=== PATIENT | female | born 1985 | race Caucasian/White ===

== ENCOUNTER 2021-04-23 14:25 | Outpatient (REF) | payer BC, SELFPAY ==
[2021-04-23 16:34] LABS: MANUAL DIFF FLAG NO
[2021-04-23 16:39] LABS: Basophils Percent Auto 0.6 % (0-2); Eosinophils Absolute Auto 0.2 X10*3/uL (0.0-0.4); Eosinophils Percent Auto 2.2 % (0-4); Hematocrit 40.3 % (37.0-47.0); Hemoglobin 13.7 g/dl (12.0-16.0); Imm Gran Abs Auto 0.01 X10*3/uL (0.00-0.03); Imm Gran Pct Auto 0.1 % (0.0-0.4); Lymphocytes Absolute Auto 2.4 X10*3/uL (1.2-4.9); Lymphocytes Percent Auto 34.6 % (20-40); Mean Corpuscular Hemoglobin 30.2 pg (27.0-33.0); Mean Corpuscular Volume 88.8 fL (80.0-98.0); Mean Platelet Volume 11.1 fL (9.4-12.3); Monocytes Absolute Auto 0.4 X10*3/uL (0.1-1.2); Monocytes Percent Auto 5.4 % (2-11); Neutrophils Absolute Auto 3.9 x10*3/uL (2.0-8.3); Neutrophils Percent Auto 57.1 % (45-73); Platelet Count 279 X10*3/uL (160-400); Red Blood Count 4.54 X10*6/uL (4.20-5.50); Red Cell Distribution Width 12.4 % (11.0-16.0); White Blood Count 6.8 X10*3/uL (4.8-10.8)
[2021-04-23 16:49] LABS: Alanine Aminotransferase 13 U/L (0-31); Albumin Level 4.7 g/dL (3.5-5.0); Alkaline Phosphatase 64 U/L (39-117); Anion Gap 14 (12-20); Aspartate Amino Transferase 18 U/L (5-31); Bilirubin Total 0.4 mg/dL (0.0-1.0); Blood Urea Nitrogen 14 mg/dL (9-16); Calcium 10.1 mg/dL (8.4-10.2); Carbon Dioxide 24 mmol/L (22-29); Chloride 103 mmol/L (96-108); Estimated Glomerular Filt Rate > 60; Glucose Random 103 mg/dL (60-115); Potassium 4.1 mmol/L (3.3-5.1); Sodium 137 mmol/L (135-145); Total Protein 7.6 g/dL (6.5-8.0)
[2021-04-23 17:10] LABS: TSH reflex Free T4 0.55 uIU/mL (0.32-4.0)
[2021-04-23 17:14] LABS: Vitamin B12 700 pg/mL (200-900)
[2021-04-24 14:56] LABS: LDL Cholesterol Direct 139 mg/dL (<100)
[2021-04-27 12:41] LABS: Vitamin D 25-OH, D2 <4 ng/mL; Vitamin D 25-OH, D3 22 ng/mL; Vitamin D 25-OH, Total 22 ng/mL (30-100)
== END 2021-04-23 14:26 | disposition home or self-care (01) ==
LOC: HO.HMGCLDS 14:25
PROVIDERS: Visit Provider Internal Medicine
DX: Z00.01 Encounter for general adult medical examination with abnormal findings (principal); F43.29 Adjustment disorder with other symptoms; F41.1 Generalized anxiety disorder; F41.0 Panic disorder [episodic paroxysmal anxiety]; R00.0 Tachycardia, unspecified
CPT/HCPCS: 36415; 80053; 82306; 82607; 83721; 84443; 85025

== ENCOUNTER 2022-08-11 12:46 | Outpatient (REF) | payer BC, SELFPAY ==
[2022-08-11 14:31] LABS: MANUAL DIFF FLAG NO
[2022-08-11 14:42] LABS: Basophils Percent Auto 0.6 % (0-2); Eosinophils Absolute Auto 0.1 X10*3/uL (0.0-0.4); Eosinophils Percent Auto 1.6 % (0-4); Hematocrit 40.7 % (37.0-47.0); Hemoglobin 13.6 g/dl (12.0-16.0); Imm Gran Abs Auto 0.02 X10*3/uL (0.00-0.03); Imm Gran Pct Auto 0.3 % (0.0-0.4); Lymphocytes Absolute Auto 2.2 X10*3/uL (1.2-4.9); Mean Corpuscular HGB Conc 33.4 g/dl (31.0-35.0); Mean Corpuscular Hemoglobin 29.6 pg (27.0-33.0); Mean Corpuscular Volume 88.7 fL (80.0-98.0); Mean Platelet Volume 10.8 fL (9.4-12.3); Monocytes Absolute Auto 0.5 X10*3/uL (0.1-1.2); Monocytes Percent Auto 7.2 % (2-11); Neutrophils Absolute Auto 3.4 x10*3/uL (2.0-8.3); Neutrophils Percent Auto 54.3 % (45-73); Platelet Count 264 X10*3/uL (160-400); Red Blood Count 4.59 X10*6/uL (4.20-5.50); Red Cell Distribution Width 12.5 % (11.0-16.0); White Blood Count 6.2 X10*3/uL (4.8-10.8)
[2022-08-11 15:13] LABS: Alanine Aminotransferase 13 U/L (0-31); Albumin Level 4.5 g/dL (3.5-5.0); Alkaline Phosphatase 52 U/L (39-117); Anion Gap 11 (12-20); Aspartate Amino Transferase 14 U/L (5-31); Bilirubin Total 0.8 mg/dL (0.0-1.0); Blood Urea Nitrogen 11 mg/dL (9-16); Calcium 9.7 mg/dL (8.4-10.2); Carbon Dioxide 27 mmol/L (22-29); Chloride 103 mmol/L (96-108); Cholesterol 216 mg/dL; Estimated Glomerular Filt Rate > 60; Glucose Fasting 95 mg/dL (60-99); HDL Cholesterol 58 mg/dL; LDL Cholesterol Calculated 142 mg/dl; Potassium 4.1 mmol/L (3.3-5.1); Sodium 137 mmol/L (135-145); Total Protein 7.1 g/dL (6.5-8.0); Triglycerides 82 mg/dL
[2022-08-11 15:21] LABS: TSH reflex Free T4 0.99 uIU/mL (0.32-4.0)
[2022-08-18 17:19] LABS: Vitamin D 25-OH, D2 <4 ng/mL; Vitamin D 25-OH, D3 39 ng/mL; Vitamin D 25-OH, Total 39 ng/mL (30-100)
== END 2022-08-11 12:47 | disposition home or self-care (01) ==
LOC: HO.HMGCLDS 12:46
PROVIDERS: PCP Internal Medicine; Visit Provider Internal Medicine
DX: Z00.01 Encounter for general adult medical examination with abnormal findings (principal); E55.9 Vitamin D deficiency, unspecified; F41.0 Panic disorder [episodic paroxysmal anxiety]; F41.1 Generalized anxiety disorder; R45.4 Irritability and anger; Z13.220 Encounter for screening for lipoid disorders
CPT/HCPCS: 36415; 80053; 80061; 82306; 84443; 85025

== ENCOUNTER 2023-04-28 12:46 | Outpatient (AMB) | payer BC, SELFPAY ==
--- NOTE | 2023-04-28 12:47 | A.OFFPC_ITS ---
Vital Signs 04/28/23 12:49 Height 5 ft 2 in Weight 144 lb BMI 26.3 BP 102/68 Blood Pressure Location Lt brachial Position Sitting Pulse 70 Pulse Source Pulse Oximeter Pulse Oximetry (%) 100 Oxygen Delivery Method Room Air Intake Visit Reasons: Annual PE Allergies Environmental Allergy (Unknown, Uncoded 04/28/23 12:47) Runny Nose Medication List - Last Reconciled 04/28/23 by Maicol Lee MD buspirone 5 mg PO TID PRN 30 days cholecalciferol (vitamin D3) 25 mcg PO DAILY 90 days Tobacco use date assessed: 04/28/23 Dental Screening Dental Screen Date: 04/28/23 HPI Annual PE HPI Details Patient is a 37-year-old female came in today for physical examination She has stopped taking Wellbutrin, patient has changed her lifestyle, started exercising and eating healthy and she does feel depressed anymore She takes buspirone 5 mg only as needed Patient have OBGYN at [facility] she has not seen them in 3 years, she said that she will call in book appointment Labs that were done last time reviewed again I do not see the need to repeat labs at this time. [facility] Medical History depression Family History Father Diabetes Hypertension Mother Hypertension Hypothyroid Paternal Grandfather Diabetes Maternal Grandmother Cancer Sister Gallstones Social History Housing: Apartment Alcohol intake: current Alcohol intake frequency: a few times a month Patient Tobacco Use Status: Never used Tobacco e-Cigarette/Vaping Use: Never Used service: No Current occupational status: employed Cognitive needs: No Hearing needs: No Vision needs: Yes (contacts) Questionnaire PHQ-9 Over the last 2 weeks, how often have you been bothered by any of the following problems? 1. Little interest or pleasure in doing things: not at all 2. Feeling down, depressed, or hopeless: not at all 3. Trouble falling or staying asleep, or sleeping too much: not at all 4. Feeling tired or having little energy: not at all 5. Poor appetite or overeating: not at all 6. Feeling bad about yourself - or that you are a failure or have let yourself or your family down: not at all 7. Trouble concentrating on things, such as reading the newspaper or watching television: not at all 8. Moving or speaking so slowly that other people could have noticed. Or the opposite - being so fidgety or restless that you have been moving around a lot more than usual: not at all 9. Thoughts that you would be better off or of hurting yourself in some way: not at all Total score: 0 Depression Screening Interpretation: Negative Depression Screening Done: Yes 45985 - PHQ-9 Billing: Yes Source: Developed by Drs. Jase Julien, Leah Anaya, Eulalio Mcneal and colleagues, with an educational jose from [employer]. Thrive Questionnaire Date Thrive assessed: 04/28/23 I am a: Patient What is your living situation today?: I have a steady place to live Within the past 12 months, did the food you bought not last and you didn't have the money to get more?: Never true Within the past 12 months, did you worry whether your food would run out before you got money to buy more?: Never true Do you have trouble paying for medicines?: No Do you have trouble getting transportation to medical appointments?: No Do you have trouble paying your heating and electricity bill?: No Do you have trouble taking care of your child, family member or friend?: No Do you have trouble with day-to-day activities such as bathing, preparing meals, shopping, managing finances, etc.?: No Are you currently unemployed and looking for a job?: No Are you interested in more education?: No Please select the resources that you would like help with: None Currently or been in a relationship where the following occur: no concerns reported THRIVE Score: 0 AUDIT C Alcohol Use Questionnaire (AUDIT-C) 1. How often do you have a drink containing alcohol?: Monthly or less 2. How many drinks containing alcohol do you have on a typical day when you are drinking?: 1 or 2 3. How often do you have six or more drinks on one occasion?: Never Total Score: 1 Score Reviewed/Action Taken: No CHRIS-7 AMB Questionnaire CHRIS-7 Date CHRIS - 7 assessed: 04/28/23 Feeling nervous, anxious, or on edge: 0 = Not at all Not being able to stop or control worryin = Not at all Worrying too much about different things: 0 = Not at all Trouble relaxin = Not at all Being so restless that it is hard to sit still: 0 = Not at all Becoming easily annoyed or irritable: 0 = Not at all Feeling afraid as if something awful might happen: 0 = Not at all Total CHRIS-7 score (0-4 normal; 5-9 mild; 10-14 moderate; 15-21 severe): 0 Source: Developed by Drs. Jase Julien, Leah Anaya, Eulalio Mcneal and colleagues, with an educational jose from [employer]. CHRIS-7 Assessment Billing CHRIS-7 Assessment Tool: CHRIS-7 Assessment 75627 Review of Systems Const Denies chills, Denies fever(s) and Denies headache(s) Eyes Denies blurry vision ENT Denies headache(s), Denies nasal discharge, Denies nasal obstruction, Denies odynophagia and Denies sinus pain Card Denies chest pain at rest and Denies chest pain with activity Resp Denies cough and Denies hemoptysis GI Denies diarrhea, Denies odynophagia, Denies vomiting and Denies hematemesis Reports as per HPI Musc Denies abnormal gait Skin/Breast Reports as per HPI Neuro Denies Neuro-related abnormal movements, Denies Abnormal speech present, Denies abnormal gait, Denies headache(s) and Denies Sensory deficit (Neuro) Psych Denies mood swings and Denies paranoia Endo Reports as per HPI Scooby/Lymph Reports as per HPI Aller/Immun Reports as per HPI Physical exam (Primary Care) Vital Signs: Last Vital Signs Pulse 70 04/28/23 12:49 BP 102/68 04/28/23 12:49 Pulse Ox 100 04/28/23 12:49 Oxygen Delivery Method Room Air 04/28/23 12:49 BMI result Body Mass Index 26.3 Tobacco/Smoking Status: Tobacco use Status Tobacco use date assessed 04/28/23 04/28/23 12:53 Patient Tobacco Use Status Never used Tobacco 04/28/23 12:53 e-Cigarette/Vaping Use Never Used 04/28/23 12:53 PHQ-9: PHQ-9 Score PHQ-9: Total score 0 04/28/23 12:53 Depression Screening Interpretation: Negative Thrive Assessment: Date of Thrive Assessment Date Thrive assessed 04/28/23 04/28/23 12:53 Currently or been in a relationship where the following occur: no concerns reported Const General: cooperative, comfortable and no acute distress Orientation/consciousness: patient oriented x3 HENMT Head: Yes normocephalic and Yes atraumatic Eyes General: appearance normal, both eyes and all related structures Pupils: Equal, round and reactive pupils present EOM: EOMs intact bilaterally Neck Neck: Yes supple and No lymphadenopathy Thyroid: Thyroid normal Lymphatic: no lymphadenopathy noted Chest Breast/axilla palpation: normal palpation of the breasts Resp Effort & Inspection: normal respiratory effort and able to speak in complete sentences Auscultation: clear to auscultation bilaterally Cardio Heart sounds: S1 normal heart sound present and S2 normal heart sound present GI Palpation (GI): Soft to palpation and nontender Auscultation: normal bowel sounds General: Yes no CVA tenderness Back/Spine/Pelvis Back: no CVA tenderness Skin General skin exam: elasticity normal and turgor normal Neuro General: patient oriented x3 and gait normal Cranial nerves: Yes Equal, round and reactive pupils present Speech: No Abnormal speech present Sensory Exam: No Sensory deficit (Neuro) Coordination: tandem gait normal and Romberg test negative Extrem General: Yes normal exam except as noted and No edema Assessment and Plan Assessment & Plan (1) Encounter for general adult medical examination with abnormal findings: Code(s): Z00.01 - Encounter for general adult medical examination with abnormal findings (2) Vitamin D deficiency: Code(s): E55.9 - Vitamin D deficiency, unspecified (3) Generalized anxiety disorder with panic attacks: Code(s): F41.1 - Generalized anxiety disorder; F41.0 - Panic disorder [episodic paroxysmal anxiety] Plan Patient is a 37-year-old female came in today for physical examination She has stopped taking Wellbutrin, patient has changed her lifestyle, started exercising and eating healthy and she does feel depressed anymore She takes buspirone 5 mg only as needed Patient have OBGYN at [facility] she has not seen them in 3 years, she said that she will call in book appointment Labs that were done last time reviewed again I do not see the need to repeat labs at this time. Coding Level of Care Code Est Pt Prev Care 18-39y(94931) Diagnoses Encounter for general adult medical examination with abnormal findings Z00.01 Vitamin D deficiency E55.9 Generalized anxiety disorder with panic attacks F41.1; F41.0 Additional Codes CHRIS-7 Assessment Billing - CHRIS-7 Assessment Tool: CHRIS-7 Assessment [id number] ([id number])
[2023-04-28 12:49] VITALS: BP 102/68; PULSE 70; O2SAT 100; BMI 26.3
== END 2023-04-28 14:23 | disposition home or self-care (01) ==
PROVIDERS: PCP Internal Medicine; Visit Provider Internal Medicine
DX: Z00.00 Encounter for general adult medical examination without abnormal findings (principal); E55.9 Vitamin D deficiency, unspecified; F41.1 Generalized anxiety disorder; F41.0 Panic disorder [episodic paroxysmal anxiety]
CPT/HCPCS: 99395

== ENCOUNTER 2024-05-10 09:00 | Outpatient (AMB) | payer OTHER, SELFPAY ==
[2024-05-10 09:02] VITALS: BP 116/82; PULSE 88; O2SAT 96; BMI 24.5
--- NOTE | 2024-05-10 09:02 | A.OFFPC_ITS ---
Vital Signs 05/10/24 09:02 Height 5 ft 2 in Weight 134 lb BMI 24.5 BP 116/82 Blood Pressure Location Rt brachial Position Sitting Pulse 88 Pulse Source Pulse Oximeter Pulse Oximetry (%) 96 Oxygen Delivery Method Room Air Intake Visit Reasons: Annual PE Allergies Environmental Allergy (Unknown, Uncoded 04/28/23 12:47) Runny Nose Medication List - Last Reconciled 05/10/24 by Maicol Lee MD buspirone 5 mg PO TID PRN 30 days cholecalciferol (vitamin D3) 25 mcg PO DAILY 90 days Tobacco use date assessed: 05/10/24 Dental Screening Dental Screen Date: 05/10/24 Did you have a dental visit in the last 12 months?: Yes Did you have a dental problem in the last 6 months where you did not have access to dental care?: No Was dental information given to patient?: Patient has dentist HPI Annual PE HPI Details History of Present Illness - The patient is a 38-year-old female pr esenting for a wellness visit. Offer no new complaints Taking buspirone 5 mg only as needed Health Maintenance - OBGYN appointment was performed recent ly and up-to-date with the breast examination. - Labs ordered for routine wellness chec k. - Reviewed older discussions around fast ing labs for every other year without indication of acute concerns. 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 - Background in occupational therapy, fo cusing on upper body rehabilitation tasks involving independence in activities of daily living. Patient Instructions - Proceed with the labs as per the order . - Continue current medication as needed. - Maintain regular wellness checks, mildred moreno. Review of Systems - General: No fever no chills - Neurological: No headaches no dizzin ess - Ear nose throat: No sore throat no hearing difficulty no ear pain - Cardiovascular: No syncope, no chest pain, no palpitations - Gastrointestinal: No nausea vomiting or diarrhea - Endocrine: No polyuria polydipsia no heat intolerance - Genitourinary: No dysuria - Skin: No new complaints Physical Exam General: Cooperative, healthy appearing, comfortable, no acute distress Orientation: Patient oriented x3 Limitations: None Head: Normal to inspection Ears: Within normal limit visually Nose: Normal external nose present Face and sinus: Normal facial exam Eyes: Appearance normal, extraocular movement intact pupils reactive Neck: Normal visual inspection and supple Respiratory: Normal respiratory effort and able to speak in complete sentences. Clear to auscultation, no stridor Breast exam through OBGYN Cardiovascular: S1 and S2 GI: Normal to inspection. Soft to palpation and nontender Skin: Turgor normal, no acute findings Neuro: Patient oriented x3, motor sensory intact, balance intact, tandem pass Extremities: Normal to inspection, no problem with the joints, knees crack sometimes, no problem in the leg movement PFSH Medical History depression Family History Father Diabetes Hypertension Mother Hypertension Hypothyroid Paternal Grandfather Diabetes Maternal Grandmother Cancer Sister Gallstones Social History Housing: Apartment Alcohol intake: current Alcohol intake frequency: a few times a month Patient Tobacco Use Status: Never used Tobacco e-Cigarette/Vaping Use: Never Used service: No Current occupational status: employed Cognitive needs: No Hearing needs: No Vision needs: Yes (contacts) Questionnaire PHQ-9 Over the last 2 weeks, how often have you been bothered by any of the following problems? 1. Little interest or pleasure in doing things: not at all 2. Feeling down, depressed, or hopeless: not at all 3. Trouble falling or staying asleep, or sleeping too much: not at all 4. Feeling tired or having little energy: not at all 5. Poor appetite or overeating: not at all 6. Feeling bad about yourself - or that you are a failure or have let yourself or your family down: not at all 7. Trouble concentrating on things, such as reading the newspaper or watching television: not at all 8. Moving or speaking so slowly that other people could have noticed. Or the opposite - being so fidgety or restless that you have been moving around a lot more than usual: not at all 9. Thoughts that you would be better off or of hurting yourself in some way: not at all Total score: 0 Depression Screening Interpretation: Negative Depression Screening Done: Yes 22293 - PHQ-9 Billing: Yes Source: Developed by Drs. Jase Julien, Leah Anaya, Eulalio Mcneal and colleagues, with an educational jose from [employer]. Thrive Questionnaire Date Thrive assessed: 05/10/24 I am a: Patient What is your living situation today?: I have a steady place to live Within the past 12 months, did the food you bought not last and you didn't have the money to get more?: Never true Within the past 12 months, did you worry whether your food would run out before you got money to buy more?: Never true Do you have trouble paying for medicines?: No Do you have trouble getting transportation to medical appointments?: No Do you have trouble paying your heating and electricity bill?: No Do you have trouble taking care of your child, family member or friend?: No Do you have trouble with day-to-day activities such as bathing, preparing meals, shopping, managing finances, etc.?: No Are you currently unemployed and looking for a job?: No Are you interested in more education?: No Please select the resources that you would like help with: None Currently or been in a relationship where the following occur: No concerns reported THRIVE Score: 0 AUDIT C Alcohol Use Questionnaire (AUDIT-C) 1. How often do you have a drink containing alcohol?: Monthly or less 2. How many drinks containing alcohol do you have on a typical day when you are drinking?: 1 or 2 3. How often do you have six or more drinks on one occasion?: Never Total Score: 1 Score Reviewed/Action Taken: Yes CHRIS-7 AMB Questionnaire CHRIS-7 Date CHRIS - 7 assessed: 05/10/24 Feeling nervous, anxious, or on edge: 0 = Not at all Not being able to stop or control worryin = Not at all Worrying too much about different things: 0 = Not at all Trouble relaxin = Not at all Being so restless that it is hard to sit still: 0 = Not at all Becoming easily annoyed or irritable: 0 = Not at all Feeling afraid as if something awful might happen: 0 = Not at all Total CHRIS-7 score (0-4 normal; 5-9 mild; 10-14 moderate; 15-21 severe): 0 Source: Developed by Leah Valdez, Eulalio Mcneal and colleagues, with an educational jose from [employer]. CHRIS-7 Assessment Billing CHRIS-7 Assessment Tool: CHRIS-7 Assessment 97804 Physical exam (Primary Care) Vital Signs: Last Vital Signs Pulse 88 05/10/24 09:02 BP 116/82 05/10/24 09:02 Pulse Ox 96 05/10/24 09:02 Oxygen Delivery Method Room Air 05/10/24 09:02 BMI result Body Mass Index 24.5 Tobacco/Smoking Status: Tobacco use Status Tobacco use date assessed 05/10/24 05/10/24 09:09 Patient Tobacco Use Status Never used Tobacco 05/10/24 09:09 e-Cigarette/Vaping Use Never Used 05/10/24 09:09 PHQ-9: PHQ-9 Score PHQ-9: Total score 0 05/10/24 09:30 Depression Screening Interpretation: Negative Thrive Assessment: Date of Thrive Assessment Date Thrive assessed 05/10/24 05/10/24 09:09 Currently or been in a relationship where the following occur: No concerns reported Coding Level of Care Code Est Pt Prev Care 18-39y(71101) Diagnoses Encounter for general adult medical examination without abnormal findings Z00.00 Vitamin D deficiency E55.9 Generalized anxiety disorder with panic attacks F41.1; F41.0 Additional Codes CHRIS-7 Assessment Billing - CHRIS-7 Assessment Tool: CHRIS-7 Assessment 96594 ([id number]) PHQ-9 - 70844 - PHQ-9 Billing: Yes ([id number]) Assessment & Plan Assessment & Plan (1) Encounter for general adult medical examination without abnormal findings: Code(s): Z00.00 - Encounter for general adult medical examination without abnormal findings Category: Medical (2) Vitamin D deficiency: Code(s): E55.9 - Vitamin D deficiency, unspecified Category: Medical (3) Generalized anxiety disorder with panic attacks: Code(s): F41.1 - Generalized anxiety disorder; F41.0 - Panic disorder [episodic paroxysmal anxiety] Category: Medical Plan History of Present Illness - The patient is a 38-year-old female presenting for a wellness visit. Offer no new complaints Taking buspirone 5 mg only as needed Health Maintenance - OBGYN appointment was performed recently and up-to-date with the breast examination. - Labs ordered for routine wellness check. - Reviewed older discussions around fasting labs for every other year without indication of acute concerns. 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 Patient Instructions - Proceed with the labs as per the order. - Continue current medication as needed. - Maintain regular wellness checks, annually. Orders: Orders Complete Blood Count Auto Diff Today E55.9 - Vitamin D deficiency, unspecified, F41.0 - Panic disorder [episodic paroxysmal anxiety], F41.1 - Generalized anxiety disorder, Z00.00 - Encounter for general adult medical examination without abnormal findings Lipid Panel Today E55.9 - Vitamin D deficiency, unspecified, F41.0 - Panic disorder [episodic paroxysmal anxiety], F41.1 - Generalized anxiety disorder, Z00.00 - Encounter for general adult medical examination without abnormal findings Comprehensive Vaughn. Panel Fast Today E55.9 - Vitamin D deficiency, unspecified, F41.0 - Panic disorder [episodic paroxysmal anxiety], F41.1 - Generalized anxiety disorder, Z00.00 - Encounter for general adult medical examination without abnormal findings Vitamin D 25-OH (D2 and D3) Today E55.9 - Vitamin D deficiency, unspecified, F41.0 - Panic disorder [episodic paroxysmal anxiety], F41.1 - Generalized anxiety disorder, Z00.00 - Encounter for general adult medical examination without abnormal findings Medications: New buspirone 5 mg PO .Q.d. Discontinued buspirone Discontinued Reason: Doctor's Order 5 mg PO TID 30 days PRN 90 tabs 2RF anxiety
--- OUTSIDE RECORDS SUMMARY | 2024-05-10 09:25 | XMS_ITS | Clinical Summary ---
Author Organization Patient Business Ser [facility] Address [address] [place] [address] Care Team Providers Care Pulp Grinder Feeder Name Role Phone Maicol Lee MD Primary Care Provider [phone] Surgical History Surgery Date Site/Laterality Comments CERVICAL BIOPSY W/ LOOP ELECTRODE EXCISION PROCEDURE: [place] CONIZATION CERVIX W/WO D&C RPR ELTRD EXC WISDOM TOOTH EXTRACTION 2003 Bilateral PROCEDURE: HISTORICAL WISDOM TEETH EXTRACTION Medical History Medical History Date Comments Cervical dysplasia DX:Cervical d ysplasia Family History Medical History Relation Name Comments Depression Father Diabetes Father Pancreatic cancer Maternal Grandmother 56 Hypertension Mother Other: vertigo Mother Diabetes Paternal Grandfather Heart failure Paternal Grandfather No Known Problems Sister 1 No Known Problems Sister 2 Breast cancer Neg Hx Cervical cancer Neg Hx Ovarian cancer Neg Hx Prostate cancer Neg Hx Uterine cancer Neg Hx Relation Name Status Comments Father Alive Maternal Grandfather Maternal Grandmother 56 Mother Alive Paternal Grandfather Paternal Grandmother Alive Sister 1 Alive Sister 2 Alive Social History Tobacco Use Types Packs/Day Years Used Date Smoking Tobacco: Never Smokeless Tobacco: Never Alcohol Use Standard Drinks/Week Comments No 0 (1 standard drink = 0.6 oz pur e alcohol) Comments Unknown Sex and Gender Information Value Date Recorded Sex Assigned at Not on file Legal Sex Female 4:51 PM EDT Gender Identity Not on file Sexual Orientation Not on file Obstetrics History Last Filed Vital Signs Vital Sign Reading Time Taken Comments Blood Pressure 129/74 10/30/2023 2:41 PM EDT Pulse 88 10/30/2023 2:41 PM EDT Temperature - - Respiratory Rate - - Oxygen Saturation - - Inhaled Oxygen Concentration - - Weight 64.5 kg (142 lb 3.2 oz) 10/30/2023 2:41 P M EDT Height 157.5 cm (5' 2 ) 10/30/2023 2:41 PM EDT Body Mass Index 26.01 10/30/2023 2:41 PM EDT Plan of Treatment Health Maintenance Due Date Last Done Comments DTaP,Tdap,and Td Vaccines (1 - Tdap) 2004 Hepatitis B Vaccines (1 of 3 - 19+ 3-dose series) 2004 Cervical Cancer Screening: HPV 2006 Depression Screening 09/05/2019 HIV Screening 09/05/2019 Hepatitis C Screening 09/05/2019 Social Influencers of Health Screening 09/05/2019 COVID-19 Vaccine (1 - 2023-2 5 season) 2023 Influenza Vaccine (#1) 2023 HIB Vaccines Aged Out No longer eligi ble based on patient's age to complete this topic HPV Vaccines Aged Out No longer eligi ble based on patient's age to complete this topic Hepatitis A Vaccines Aged Out No long er eligible based on patient's age to complete this topic IPV Vaccines Aged Out No longer eligi ble based on patient's age to complete this topic MMR Vaccines Aged Out No longer eligi ble based on patient's age to complete this topic Meningococcal ACWY Vaccine Aged Out N o longer eligible based on patient's age to complete this topic Meningococcal B Vacine Aged Out No lo nger eligible based on patient's age to complete this topic Pneumococcal Vaccine: Pediat rics (0 to 5 Years) and At-Risk Patients (6 to 64 Years) Aged Out No longer eligible b ased on patient's age to complete this topic RSV Immunization Patients Un josephine 20 months Aged Out No longer eligible b ased on patient's age to complete this topic Varicella Vaccines Aged Out No longer eligible based on patient's age to complete this topic Care Teams Pulp Grinder Feeder Relationship Specialty Start Date End Date Maicol Lee MD [address] [place] [address] PCP - General Internal Medicine 05/16/19
== END 2024-05-10 09:28 | disposition home or self-care (01) ==
PROVIDERS: PCP Internal Medicine; Visit Provider Internal Medicine
DX: Z00.00 Encounter for general adult medical examination without abnormal findings (principal); E55.9 Vitamin D deficiency, unspecified; F41.1 Generalized anxiety disorder; F41.0 Panic disorder [episodic paroxysmal anxiety]

== ENCOUNTER → 2024-05-10 09:00 | Outpatient (BNVA) | payer OTHER, SELFPAY | PROVIDERS: PCP Internal Medicine; Visit Provider Internal Medicine | DX: Z00.00 Encounter for general adult medical examination without abnormal findings (principal); E55.9 Vitamin D deficiency, unspecified; F41.1 Generalized anxiety disorder; F41.0 Panic disorder [episodic paroxysmal anxiety] | CPT/HCPCS: 96127 ==

== ENCOUNTER 2024-07-09 07:59 | Outpatient (AMB) | payer OTHER, SELFPAY ==
--- OUTSIDE RECORDS SUMMARY | 2024-07-09 08:04 | XMS_ITS ---
Author Name [facility] Organization Unknown Encounters Encounter Type Encounter Reason Primary Diagnosis Location Date Ambulatory [facility] 09/07/2023 Care Team Organization Name Specialty Phone Email Start Date End [facility] te [facility] 09/07/2023
--- OUTSIDE RECORDS SUMMARY | 2024-07-09 08:04 | XMS_ITS | Clinical Summary ---
Author Organization Patient Business Ser [facility] Address [address] [place] [address] Care Team Providers Care Advance Scout Name Role Phone Maicol Lee MD Primary Care Provider [phone] Surgical History Surgery Date Site/Laterality Comments CERVICAL BIOPSY W/ LOOP ELECTRODE EXCISION PROCEDURE: [place] CONIZATION CERVIX W/WO D&C RPR ELTRD EXC [...] - 2023-2 5 season) 2023 Influenza Vaccine (Season Ended) 2024 HIB Vaccines Aged Out No longer eligi [...] age to complete this topic Meningococcal B Vaccine Aged Out No l onger eligible based on patient's age to complete [...] age to complete this topic Care Teams Advance Scout Relationship Specialty Start Date End Date Maicol Lee MD [address] [place] [address] PCP - General Internal Medicine 05/16/19
--- NOTE | 2024-07-09 08:10 | MHC.OFFWIV ---
Intake Vital Signs 07/09/24 08:11 Weight 129 lb BP 124/80 Blood Pressure Location Lt brachial Position Sitting Pulse 68 Pulse Source Pulse Oximeter Pulse Oximetry (%) 97 Oxygen Delivery Method Room Air Intake Visit Reasons: EP poison dayana all over body Patient Tobacco Use Status: Never used Tobacco Allergies Environmental Allergy (Unknown, Uncoded 07/09/24 08:34) Runny Nose Medication List - Last Reconciled 07/09/24 by Roz Crisostomo, [facility]- buspirone 5 mg PO .Q.d. cholecalciferol (vitamin D3) 25 mcg PO DAILY 90 days Do you need a note to return to daycare/school/sports/work: Yes HPI HPI Comments History of Present Illness Details History of Present Illness - The patient is a 39-year-old female presenting with a severe pruritic rash following yard work. - Rash onset was two weeks ago, with a significant worsening two days ago. - Rash is extensive, involving the arms, legs, between the breasts, and the back. - Zinc ointment & calamine previously applied was ineffective. - Patient describes intense discomfort from the rash. - Background of no prior use of prednisone for treatment. - Denies fever, chills, sob. Physical Exam General: Well developed, well nourished, in no acute distress. Appears stated age. Speaking in full sentences Bilat arms, legs, anterior and posterior trunk is a rash c/w contact dermatitis; some areas area fluid filled. Without signs of infection. Discussion Notes I discussed with the patient that the likely diagnosis is allergic contact dermatitis, possibly due to exposure during yard work two weeks ago. We reviewed the benefits of starting a prednisone taper, which is preferable for skin conditions to minimize side effects. The patient was advised to start prednisone with food to avoid gastrointestinal distress and take it in the morning to reduce the risk of insomnia. I recommended the use of a daily antihistamine such as Zyrtec as well to help modulate the immune response. We also discussed the use of an [id number] product, Tecnu exfoliating scrub, to assist in alleviating the itching and drying out the rash. We agreed that a 90-day supply of Zyrtec would be appropriate, understanding that insurance might not cover it. I provided reassurance regarding the prognosis and encouraged follow-up if symptoms do not improve or if there are any side effects from the medications. Assessment and Plan 1. Allergic Contact Dermatitis Allergic contact dermatitis is assessed due to a history of exposure during yard work with subsequent rash onset. A tapering prednisone regimen is recommended to address inflammation and reduce skin symptom severity. Zyrtec is suggested daily to assist with immune response control and alleviation of pruritus. Technu exfoliating scrub is advised for topical use to dry and soothe the skin. Patient to self-monitor rash progression and report any adverse medication reactions or lack of symptom relief. Patient Instructions - Start treatment with prescribed prednisone and take with food. - Use Technu exfoliating scrub in the shower to help with rash relief. - Take Zyrtec daily to help reduce itching. - Make sure not to take prednisone too late in the day to avoid sleep disruption. - If symptoms do not improve or if you experience side effects from the medication, contact the clinic. - janitorial supervisor medications from the pharmacy and follow the dosage instructions. Consent Patient was informed and verbally consented to the use of an ambient scribe for clinic note documentation during this visit. [facility] Medical History depression Family History Father Diabetes Hypertension Mother Hypertension Hypothyroid Paternal Grandfather Diabetes Maternal Grandmother Cancer Sister Gallstones Social History Housing: Apartment Alcohol intake: current Alcohol intake frequency: a few times a month Patient Tobacco Use Status: Never used Tobacco e-Cigarette/Vaping Use: Never Used service: No Current occupational status: employed Cognitive needs: No Hearing needs: No Vision needs: Yes (contacts) Physical Exam Vital Signs: Last Vital Signs Pulse 68 07/09/24 08:11 BP 124/80 07/09/24 08:11 Pulse Ox 97 07/09/24 08:11 Oxygen Delivery Method Room Air 07/09/24 08:11 Assessment & Plan Assessment & Plan (1) Contact dermatitis: Code(s): L25.9 - Unspecified contact dermatitis, unspecified cause Qualifiers: Contact dermatitis type: allergic Contact dermatitis trigger: non-food plants Qualified Code(s): L23.7 - Allergic contact dermatitis due to plants, except food Plan . Medications: New cetirizine (Zyrtec) 10 mg PO DAILY 90 tabs 0RF prednisone 5 tabs x 2 days, 4 tabs x 2 days, 3 tabs x 2 days, 2 tabs x 2 days, 1 tab x 2 days and then STOP. 10 mg PO DIRECTED 10 days 30 tabs 0RF Coding Level of Care Code Est Pt Level 3 (53506) Diagnoses Allergic contact dermatitis due to plants, except food L23.7 Contact dermatitis type: allergic Contact dermatitis trigger: non-food plants
[2024-07-09 08:11] VITALS: BP 124/80; PULSE 68; O2SAT 97
== END 2024-07-09 08:50 | disposition home or self-care (01) ==
PROVIDERS: PCP Internal Medicine; Visit Provider Nurse Practitioner Family
DX: L23.7 Allergic contact dermatitis due to plants, except food (principal)

== ENCOUNTER → 2024-07-09 07:59 | Outpatient (BNVA) | payer OTHER, SELFPAY | PROVIDERS: PCP Internal Medicine; Visit Provider Nurse Practitioner Family ==

== ENCOUNTER 2024-07-22 09:38 | Outpatient (AMB) | payer OTHER, SELFPAY ==
[2024-07-22 09:48] VITALS: BP 120/74; PULSE 80; O2SAT 98
--- NOTE | 2024-07-22 09:48 | AM.OFFWIN_ITS ---
Intake Vital Signs 07/22/24 09:48 Weight 128 lb 9 oz BP 120/74 Blood Pressure Location Lt brachial Position Sitting Pulse 80 Pulse Source Pulse Oximeter Pulse Oximetry (%) 98 Oxygen Delivery Method Room Air Intake Visit Reasons: EP-poison dayana all over body Intake Note: Patient here for posion dayana that has been present for about 2 weeks and was put on prednisone but it is still very itchy and has spread to other locations. Patient Tobacco Use Status: Never used Tobacco Allergies Environmental Allergy (Unknown, Uncoded 07/22/24 09:54) Runny Nose HPI HPI Comments History of Present Illness Details History of Present Illness - The patient is a 39-year-old female pr esenting with a rash and itching following exposure to poison dayana. - Symptoms persisted despite an oral pre dnisone taper completed last week. - The rash has spread to multiple body a reas, including both legs, the stomach, both arms, and hips, with continuous pruritus. - The initial course of prednisone provi ded symptom relief, with resurgence of symptoms post-taper. - Previous treatment included cortisone cream and avoidance measures. - Zyrtec is used daily, but hydroxyzine had not yet been included in her regimen. Physical Exam General: Cooperative, healthy appearing, comfortable, no acute distress and well developed Orientation: Patient oriented x3 Limitations: No limitations Head: Normal to inspection Ears: Hearing grossly normal bilaterally Nose: Normal External nose present Face and sinus: Normal facial exam Eyes: Appearance normal, both eyes and all related structures Neck: Normal visual inspection and Yes full ROM Respiratory: Normal respiratory effort and able to speak in complete sentences. Clear to auscultation bilaterally Cardiovascular: Regular rate and rhythm. Normal S1 and S2 Skin: erythematous raised rash noted on BL LE, BL UE, and stomach Neuro: Patient oriented x3 Extremities: Normal to inspection [facility] Medical History depression Family History Father Diabetes Hypertension Mother Hypertension Hypothyroid Paternal Grandfather Diabetes Maternal Grandmother Cancer Sister Gallstones Social History Housing: Apartment Alcohol intake: current Alcohol intake frequency: a few times a month Patient Tobacco Use Status: Never used Tobacco e-Cigarette/Vaping Use: Never Used service: No Current occupational status: employed Cognitive needs: No Hearing needs: No Vision needs: Yes (contacts) Review of Systems Const All systems reviewed & are unremarkable except as noted in HPI and below Physical Exam Vital Signs: Last Vital Signs Pulse 80 07/22/24 09:48 BP 120/74 07/22/24 09:48 Pulse Ox 98 07/22/24 09:48 Oxygen Delivery Method Room Air 07/22/24 09:48 Assessment & Plan Assessment & Plan (1) Contact dermatitis: Code(s): L25.9 - Unspecified contact dermatitis, unspecified cause Qualifiers: Contact dermatitis type: allergic Contact dermatitis trigger: non-food plants Qualified Code(s): L23.7 - Allergic contact dermatitis due to plants, except food Plan: A new prednisone taper course will be initiated using a 12-day regimen, supplemented with hydroxyzine for itching relief. Daily use of Zyrtec will continue. The extended prednisone course aims to resolve the allergic dermatitis effectively. Non-steroidal measures are encouraged, and precautions against re- exposure in her backyard are stressed. Patient was informed and verbally consented to the use of an ambient scribe for clinic note documentation during this visit. Medications: New prednisone see taper instructions; 40 mg Daily x3 days, 30 mg daily x3 days, 20 mg daily x3 days, 10 mg daily x3 days 10 mg PO DIRECTED 30 tabs 0RF hydroxyzine HCl 25 mg PO BEDTIME PRN 14 tabs 0RF itching Coding Level of Care Code Est Pt Level 3 (93926) Diagnoses Allergic contact dermatitis due to plants, except food L23.7 Contact dermatitis type: allergic Contact dermatitis trigger: non-food plants
--- OUTSIDE RECORDS SUMMARY | 2024-07-22 09:56 | XMS_ITS | Clinical Summary ---
Author Organization Patient Business Ser [facility] Address [address] [place] [address] Care Team Providers Care Roll Examiner Name Role Phone Maicol eLe MD Primary Care Provider [phone] Surgical History Surgery Date Site/Laterality Comments CERVICAL BIOPSY W/ LOOP ELECTRODE EXCISION PROCEDURE: GA CONIZATION CERVIX W/WO D&C RPR ELTRD EXC [...] age to complete this topic Care Teams Roll Examiner Relationship Specialty Start Date End Date Maicol Lee MD [address] [place] [address] PCP - General Internal Medicine 05/16/19
== END 2024-07-22 10:25 | disposition home or self-care (01) ==
PROVIDERS: PCP Internal Medicine; Visit Provider Physician Assistant
DX: L23.7 Allergic contact dermatitis due to plants, except food (principal)

== ENCOUNTER → 2024-07-22 09:38 | Outpatient (BNVA) | payer OTHER, SELFPAY | PROVIDERS: PCP Internal Medicine; Visit Provider Physician Assistant | DX: Z13.89 Encounter for screening for other disorder (principal) ==

== ENCOUNTER 2024-08-30 06:24 | Outpatient (REF) | payer OTHER, SELFPAY ==
[2024-08-30 10:06] LABS: MANUAL DIFF FLAG NO
[2024-08-30 10:12] LABS: Basophils Absolute Auto 0.1 X10*3/uL (0.0-0.2); Basophils Percent Auto 0.8 % (0-2); Eosinophils Absolute Auto 0.1 X10*3/uL (0.0-0.4); Hematocrit 37.8 % (37.0-47.0); Hemoglobin 12.9 g/dl (12.0-16.0); Imm Gran Abs Auto 0.01 X10*3/uL (0.00-0.03); Imm Gran Pct Auto 0.2 % (0.0-0.4); Lymphocytes Absolute Auto 2.3 X10*3/uL (1.2-4.9); Lymphocytes Percent Auto 38.9 % (20-40); Mean Corpuscular HGB Conc 34.1 g/dl (31.0-35.0); Mean Corpuscular Hemoglobin 30.4 pg (27.0-33.0); Mean Corpuscular Volume 89.2 fL (80.0-98.0); Mean Platelet Volume 10.7 fL (9.4-12.3); Monocytes Absolute Auto 0.4 X10*3/uL (0.1-1.2); Monocytes Percent Auto 6.8 % (2-11); Neutrophils Percent Auto 51.3 % (45-73); Platelet Count 239 X10*3/uL (160-400); Red Blood Count 4.24 X10*6/uL (4.20-5.50); Red Cell Distribution Width 12.5 % (11.0-16.0); White Blood Count 5.9 X10*3/uL (4.8-10.8)
[2024-08-30 10:36] LABS: Alanine Aminotransferase 22 U/L (0-31); Albumin Level 4.2 g/dL (3.5-5.0); Alkaline Phosphatase 54 U/L (39-117); Anion Gap 11 (12-20); Aspartate Amino Transferase 23 U/L (5-31); Bilirubin Total 0.4 mg/dL (0.0-1.0); Blood Urea Nitrogen 9 mg/dL (9-16); Calcium 9.2 mg/dL (8.4-10.2); Carbon Dioxide 27 mmol/L (22-29); Chloride 105 mmol/L (96-108); Cholesterol 198 mg/dL (<200); Estimated Glomerular Filt Rate > 60; Glucose Fasting 84 mg/dL (60-99); HDL Cholesterol 52 mg/dL (>40); LDL Cholesterol Calculated 134 mg/dL (<100); Potassium 3.7 mmol/L (3.3-5.1); Sodium 139 mmol/L (135-145); Total Protein 6.4 g/dL (6.5-8.0); Triglycerides 61 mg/dL (<150)
[2024-09-04 18:43] LABS: Vitamin D 25-OH, D2 <4 ng/mL; Vitamin D 25-OH, D3 43 ng/mL; Vitamin D 25-OH, Total 43 ng/mL (30-100)
== END 2024-08-30 06:25 | disposition home or self-care (01) ==
LOC: HO.HMGCLDS 06:24
PROVIDERS: PCP Internal Medicine; Visit Provider Internal Medicine
DX: Z00.00 Encounter for general adult medical examination without abnormal findings (principal); F41.0 Panic disorder [episodic paroxysmal anxiety]; F41.1 Generalized anxiety disorder; E55.9 Vitamin D deficiency, unspecified; Z13.6 Encounter for screening for cardiovascular disorders
CPT/HCPCS: 36415; 80053; 80061; 82306; 85025